=== PATIENT | female | born 1990 ===

== ENCOUNTER 2016-12-15 18:02 | Emergency (ER) | payer MEDICAID ==
--- NOTE | 2016-12-15 18:15 | ED PDOC ---
Arrival/HPI - General Time Seen by Provider: 12/15/16 18:06 Historian: Patient - History of Present Illness Narrative History of Present Illness (Text): 12/15/16 18:06 26 y/o female, no significant pmh, nkda, c/o rt. ankle pain since 07/2016 rt. ankle inversion injury. On and off, aching pain, aggravated by extensive standing, no calf pain, no numbness or tingling, no dizziness, no rash, no night sweat, never follow up with the orthopedic, no other medical or psychological complaints. Past Medical History - Provider Review Nursing Documentation Reviewed: Yes - Psychiatric Hx Substance Use: No - Surgical History Hx Section: Yes - Anesthesia Hx Anesthesia: Yes - Suicidal Assessment Feels Threatened In Home Enviroment: No Family/Social History - Physician Review Nursing Documentation Reviewed: Yes Family/Social History: Unknown Family HX Smoking Status: Never Smoked Hx Alcohol Use: No Hx Substance Use: No Allergies/Home Meds Allergies/Adverse Reactions: Allergies No Known Allergies Allergy (Verified 02/10/15 21:22) Home Medications: Home Meds Medication Instructions Recorded Confirmed Lorazepam 0.5 mg PO BID PRN 02/10/15 02/10/15 Review of Systems - Review of Systems Constitutional: absent: Fatigue, Fevers Eyes: absent: Vision Changes ENT: absent: Hearing Changes Respiratory: absent: SOB, Cough Cardiovascular: absent: Chest Pain, Palpitations Gastrointestinal: absent: Abdominal Pain, Diarrhea, Nausea, Vomiting Musculoskeletal: Arthralgias. absent: Back Pain, Neck Pain, Joint Swelling, Myalgias Psychiatric: absent: Anxiety, Depression, Suicidal Ideation Physical Exam Vital Signs Temp Pulse Resp BP Pulse Ox 12/15/16 19:56 83 18 121/72 100 12/15/16 18:03 98.4 F 79 18 115/65 99 Pain Distress: Mild Mental Status: Positive for: Alert and Oriented X 3 - Systems Exam Head: Present: Atraumatic, Normocephalic Pupils: Present: PERRL Extroacular Muscles: Present: EOMI Conjunctiva: Present: Normal Mouth: Present: Moist Mucous Membranes Neck: Present: Normal Range of Motion Respiratory/Chest: Present: Clear to Auscultation, Good Air Exchange. No: Respiratory Distress, Accessory Muscle Use Cardiovascular: Present: Regular Rate and Rhythm, Normal S1, S2. No: Murmurs Abdomen: Present: Normal Bowel Sounds. No: Tenderness, Distention, Peritoneal Signs Back: Present: Normal Inspection Upper Extremity: Present: Normal Inspection. No: Cyanosis, Edema Lower Extremity: Present: Normal Inspection, Other (Rt. ankle/foot: +ttp on the lateral malleolus region with no swelling, no foot tenderness or swelling, negative nav and fall signs, FROM without limitation, sensation intact, motor 5/5, +DPPT pulses, capillary refill< 2 seconds, neurovascular intact. ). No: Edema Neurological: Present: GCS=15, CN II-XII Intact, Speech Normal Skin: Present: Warm, Dry, Normal Color. No: Rashes Psychiatric: Present: Alert, Oriented x 3, Normal Insight, Normal Concentration Medical Decision Making ED Course and Treatment: 12/15/16 18:17 -rt. ankle xray -motrin -perez wrap applied with neurovascular intact. -Pt. has negative nav and fall signs on the rt. lower extremity. -I explained to the patient that she will need MRI of the rt. ankle. -Discharge home with naproxen, perez wrap, crutches, ice compression, follow up with your own pmd and orthopedic within 2 days, return to the ER for any new or worsening signs or symptoms. 12/15/16 19:16 -Rt. ankle xray show no fracture or dislocation. - RAD Interpretation Radiology Orders: 12/15/16 18:25 ANKLE RIGHT 3 VIEWS ROUTINE [RAD] Stat no fracture/dislocation/joint effusion. String Cutter: Radiologist - PA / ABA THERAPIST / Resident Statement MD/DO has reviewed & agrees with the documentation as recorded. Disposition/Present on Arrival - Present on Arrival Any Indicators Present on Arrival: No History of DVT/PE: No History of Uncontrolled Diabetes: No Urinary Catheter: No History of Decub. Ulcer: No History Surgical Site Infection Following: None - Disposition Have Diagnosis and Disposition been Completed?: Yes Diagnosis: Ankle injury, Ankle pain Disposition: HOME/ ROUTINE Disposition Time: 18:18 Patient Plan: Discharge Condition: GOOD Additional Instructions: Discharge home with naproxen, perez wrap, crutches, ice compression, follow up with your own pmd and orthopedic within 2 days, return to the ER for any new or worsening signs or symptoms. Prescriptions: Naproxen 500 mg PO BID #22 tab Referrals: Mateus Cee III, MD [Medical Doctor] - [place] [facility] [place] [facility] [place] - Follow up with primary Forms: WORK NOTE
[2016-12-15 18:26] VITALS: BMI 29.0
[2016-12-15 19:18] VITALS: RESP 18; TEMP 98.4
[2016-12-15 19:58] VITALS: BP 121/72; PULSE 83; O2SAT 100
--- NOTE | 2016-12-15 20:42 | RAD ---
PROCEDURE: Right Ankle Radiographs. HISTORY: rt. ankle inversion injury x 6 months COMPARISON: None available. FINDINGS: BONES: No acute displaced fracture. JOINTS: No dislocation. SOFT TISSUES: Unremarkable. No evidence of radiopaque foreign body. OTHER FINDINGS: None. IMPRESSION: No acute displaced fracture, dislocation, or significant joint effusion identified. If symptoms persist or if there is clinical concern, x-ray follow-up in 7-10 days should be considered.
== END 2016-12-15 19:56 | disposition home or self-care (01) ==
LOC: ED 18:02
DX: S93.401A Sprain of unspecified ligament of right ankle, initial encounter (principal); X50.0XXA Overexertion from strenuous movement or load, initial encounter; Y93.89 Activity, other specified; Y92.89 Other specified places as the place of occurrence of the external cause